=== PATIENT | female | born 1975 | race American Indian/Alaskan Native ===

== ENCOUNTER 2023-12-02 10:38 | Emergency (ER) | payer MEDICAID ==
[~2023-12-02] VITALS: Ht 157.5 cm; Wt 109.1 kg
[~2023-12-02 10:38] MED LIST: AMOX-106 PO; HYDR-4383 PO
[2023-12-02 11:38] LABS: BASOPHILS % (AUTO) 0.7 % (0-1); EOSINOPHILS # (AUTO) 0.4 X10'3 (0-0.9); HEMATOCRIT 41.9 % (35.0-45.0); HEMOGLOBIN 14.1 g/dl (12.0-16.0); LYMPHOCYTES # (AUTO) 1.7 X10'3 (1.1-4.8); LYMPHOCYTES % (AUTO) 27.1 % (21-51); MEAN CORPUSCULAR HEMOGLOBIN 29.8 PG (27.0-31.0); MEAN CORPUSCULAR HGB CONC 33.6 g/dL (33.0-36.5); MEAN CORPUSCULAR VOLUME 88.7 FL (78-98); MONOCYTES # (AUTO) 0.6 X10'3 (0-0.9); MONOCYTES % (AUTO) 9.7 % (2-12); NEUTROPHILS # (AUTO) 3.6 X10'3 (1.8-7.7); NEUTROPHILS % (AUTO) 56.5 % (42-75); PLATELET COUNT 233 X10'3 (140-440); RED BLOOD COUNT 4.73 X10'6 (4.20-5.60); RED CELL DISTRIBUTION WIDTH 14.2 % (11.5-14.5); WHITE BLOOD COUNT 6.4 X10'3 (4.5-11.0)
[2023-12-02] MEDS: morphine 4 MG/ML inj SYRINge IV ONE (11:40)
[2023-12-02 11:54] LABS: ALANINE AMINOTRANSFERASE 327 U/L (12-78); ALBUMIN/GLOBULIN RATIO 0.7 (1.1-1.5); ALKALINE PHOSPHATASE 117 IU/L (46-116); ANION GAP 10 (8-16); ASPARTATE AMINO TRANSFERASE 189 U/L (10-37); BILIRUBIN,TOTAL 0.8 MG/DL (0.1-1.0); BLOOD UREA NITROGEN 14 MG/DL (7-18); BUN/CREATININE RATIO 17.9 (10.0-20.0); CALCIUM 9.2 MG/DL (8.5-10.1); CHLORIDE 108 MMOL/L (99-107); CREATININE 0.78 MG/DL (0.40-0.90); GLUCOSE 168 MG/DL (70-104); POTASSIUM 4.1 MMOL/L (3.5-5.1); SODIUM 140 MMOL/L (135-145); TOTAL CARBON DIOXIDE 22.4 MMOL/L (24-32); TOTAL PROTEIN 7.2 G/DL (6.4-8.2); eCRCL 69 ML/MIN; eGFR 78 ML/MIN
[2023-12-02] MEDS: normal saline 1000ml 1,000 ML IV ONE (12:03)
[2023-12-02] MEDS: ondansetron/PF 4mg/2ml inj IV ONE (12:03)
[2023-12-02 12:05] LABS: PRO BRAIN NATRIURETIC PEPTIDE 72 PG/ML (0-125)
[2023-12-02] MEDS ORDERED: CYCL-145 PO (13:34)
[2023-12-02] MEDS ORDERED: HYDR-3965 PO (13:34)
[2023-12-02 14:19] VITALS: BP 100/56; PULSE 59; RESP 14; TEMP 98.5; O2SAT 100
== END 2023-12-02 14:22 | disposition home or self-care (01) ==
LOC: ER 10:38
DX: S46.812A Strain of other muscles, fascia and tendons at shoulder and upper arm level, left arm, initial encounter (principal); K70.30 Alcoholic cirrhosis of liver without ascites; Z88.0 Allergy status to penicillin; Z88.1 Allergy status to other antibiotic agents; Z88.2 Allergy status to sulfonamides; Z88.5 Allergy status to narcotic agent; Z91.041 Radiographic dye allergy status; W19.XXXA Unspecified fall, initial encounter; Y93.89 Activity, other specified; Y92.89 Other specified places as the place of occurrence of the external cause; Y99.8 Other external cause status
CPT/HCPCS: 36415; 71045; 80053; 83880; 84484; 85025; 93005; 96361; 96374; 96375; 99285; J2270; J2405; J7030

== ENCOUNTER 2024-02-25 14:53 | Emergency (ER) | payer MEDICAID ==
[~2024-02-25] VITALS: Ht 160 cm; Wt 112.0 kg
[~2024-02-25 14:53] MED LIST changes: +CYCL-145 PO
[2024-02-25 14:55] VITALS: BP 100/61; PULSE 85; RESP 16; TEMP 98.5; O2SAT 100
[2024-02-25 15:50] LABS: BILIRUBIN,URINE NEGATIVE (Neg); CLARITY,URINE SLIGHTLY CLOUDY (Clear); COLOR,URINE DARK YELLOW (Yellow); GLUCOSE, URINE >=1000 mg/dl (Neg); KETONES,URINE NEGATIVE (Neg); LEUKOCYTE ESTERASE ,URINE SMALL (Neg); NITRITES, URINE NEGATIVE (Neg); OCCULT BLOOD,URINE NEGATIVE (Neg); PROTEIN,URINE NEGATIVE (Neg); UA COLLECTION TYPE CLN CATCH MIDSTREAM
[2024-02-25 15:51] LABS: URINE HCG NEGATIVE (NEG)
[2024-02-25 16:01] LABS: BACTERIA,URINE 1+ /HPF (Neg); MUCUS STRANDS FEW /LPF (Neg); RBC,URINE 0-2 /HPF (0-2); SQUAMOUS EPITHELIAL CELL,UR FEW /LPF (FEW); WBC CLUMPS,URINE FEW /HPF (NEGATIVE)
[2024-02-25 16:02] LABS: TRICHOMONAS,URINE FEW /HPF (NEGATIVE)
[2024-02-25 16:13] LABS: BASOPHILS % (AUTO) 0.6 % (0-1); EOSINOPHILS # (AUTO) 0.3 X10'3 (0-0.9); EOSINOPHILS % (AUTO) 4.1 % (0-6); HEMATOCRIT 43.6 % (35.0-45.0); HEMOGLOBIN 15.2 g/dl (12.0-16.0); LYMPHOCYTES # (AUTO) 2.5 X10'3 (1.1-4.8); LYMPHOCYTES % (AUTO) 35.6 % (21-51); MEAN CORPUSCULAR HEMOGLOBIN 30.5 PG (27.0-31.0); MEAN CORPUSCULAR HGB CONC 34.9 g/dL (33.0-36.5); MEAN CORPUSCULAR VOLUME 87.2 FL (78-98); MEAN PLATELET VOLUME 9.6 FL (7.4-10.4); MONOCYTES # (AUTO) 0.4 X10'3 (0-0.9); NEUTROPHILS # (AUTO) 3.8 X10'3 (1.8-7.7); NEUTROPHILS % (AUTO) 53.7 % (42-75); PLATELET COUNT 249 X10'3 (140-440); RED CELL DISTRIBUTION WIDTH 13.1 % (11.5-14.5); WHITE BLOOD COUNT 7.1 X10'3 (4.5-11.0)
[2024-02-25 16:37] LABS: ALANINE AMINOTRANSFERASE 507 U/L (12-78); ALBUMIN 3.2 G/DL (3.4-5.0); ALBUMIN/GLOBULIN RATIO 0.7 (1.1-1.5); ALKALINE PHOSPHATASE 156 IU/L (46-116); ANION GAP 7 (8-16); ASPARTATE AMINO TRANSFERASE 309 U/L (10-37); BILIRUBIN,TOTAL 0.9 MG/DL (0.1-1.0); BLOOD UREA NITROGEN 16 MG/DL (7-18); BUN/CREATININE RATIO 19.8 (10.0-20.0); CALCIUM 9.4 MG/DL (8.5-10.1); CHLORIDE 103 MMOL/L (99-107); CREATININE 0.81 MG/DL (0.40-0.90); GLUCOSE 332 MG/DL (70-104); LIPASE 46 U/L (16-77); POTASSIUM 4.2 MMOL/L (3.5-5.1); SODIUM 136 MMOL/L (135-145); TOTAL CARBON DIOXIDE 25.7 MMOL/L (24-32); TOTAL PROTEIN 7.6 G/DL (6.4-8.2); eCRCL 70 ML/MIN; eGFR 75 ML/MIN
[2024-02-25] MEDS: insulin regular, human 10 units/0.1 ml syringe SQ ONE (18:23)
== END 2024-02-25 18:27 | disposition left against medical advice (07) ==
LOC: ER 14:54
DX: E11.65 Type 2 diabetes mellitus with hyperglycemia (principal); F10.90 Alcohol use, unspecified, uncomplicated; Z88.1 Allergy status to other antibiotic agents; Z88.2 Allergy status to sulfonamides; Z91.041 Radiographic dye allergy status
CPT/HCPCS: 36415; 80053; 81001; 81025; 82948; 83690; 85025; 87088; 99283

== ENCOUNTER 2024-09-06 14:53 | Emergency (ER) | payer MEDICAID ==
[~2024-09-06] VITALS: Ht 157.5 cm; Wt 114.4 kg
[2024-09-06 14:56] VITALS: TEMP 97.5
--- NOTE | 2024-09-06 15:10 | ELECTROCARDIOGRAPH REPORT ---
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 Freedom Anna Measurements Intervals [place] Rate: 96 P: 39 [place]: 135 QRS: 59 QRSD: 92 T: 40 QT: 347 QTc: 439 Interpretive Statements Sinus rhythm Low voltage, precordial leads Electronically Signed On 09-13-2024 20:06:[address] Freedom Anna Please click the below link to view image of tracing.
[2024-09-06 15:17] LABS: MEAN PLATELET VOLUME 9.3 FL (7.4-10.4); RED CELL DISTRIBUTION WIDTH 13.1 % (11.5-14.5)
--- NOTE | 2024-09-06 15:33 | RADIOLOGY REPORT ---
EXAM: DI CHEST,SINGLE VIEW Indication: CP Technique: Single frontal view of the chest was obtained Comparison: DI CHEST,SINGLE VIEW on DOS: 12/02/23 FINDINGS: Lines and Tubes: None Lungs: No focal consolidation. Pleura: No effusion. No pneumothorax. Cardiomediastinal contours: Unremarkable Bones: No acute osseous abnormality. IMPRESSION: No acute cardiopulmonary disease.
[2024-09-06 15:38] LABS: CREATININE 0.73 MG/DL (0.40-0.90); PRO BRAIN NATRIURETIC PEPTIDE 53 PG/ML (0-125); TOTAL CARBON DIOXIDE 23.8 MMOL/L (24-32); eCRCL 73 ML/MIN; eGFR 84 ML/MIN
[2024-09-06] MEDS: normal saline 1000ml 1,000 ML IV ONE (16:51)
--- NOTE | 2024-09-06 17:21 | Physician Documentation ---
History of Present Illness ~ Chief Complaint: Chest Pain Stated Complaint: CHEST TIGHTNESS/SOB Time Seen by MD: 15:39 Primary Medical Doctor: CATALINA WEST HPI 49 year old female reports that she was moving a heavy ice chest today and began experiencing a variety of symptoms including shortness of breath, weakness, and dizziness. She believes the smoky environment outside is to blame for her symptoms. She denies fevers, N/V/D. Medication Reconciliation Allergies: Coded Allergies: Sulfa (Sulfonamide Antibiotics) (Verified Allergy, Intermediate, 09/06/24) levofloxacin (Verified Allergy, Intermediate, 09/06/24) Iodinated Contrast Media (Verified Allergy, Unknown, 09/06/24) Scheduled Amoxicillin Trihydrate (Amoxicillin), 1 CAP PO TID Cyclobenzaprine HCl (Cyclobenzaprine HCl), 1 TAB PO Q8H Hydrocodone/Acetaminophen ([place] 5-325 Tablet), 1 TABLET PO TID Past Medical History Past Medical History: Renal Disease Past Surgical History: noncontributory Smoking Status: Never smoker Alcohol Use: Heavy Drug Use: none Lives In: Home Review of Systems All Other Systems at this time: Reviewed and Negative Physical Exam Vital Signs: RN Vital Signs have been reviewed: Yes, Temperature: 97.5, Source: Temporal, Heart Rate: 98, Respiratory Rate: 20, BP: 107/65, Pulse Oximetry: 96, Weight: 114.400 Oxygen Flow Rate: 0 Physical Exam HEENT: PERRL, moist oral mucosa, EOMI Pulmonary: No respiratory distress Cardiac: RRR, no murmur, rub or gallop GI: nondistended, soft, nontender, no guarding, no rebound MSK: no deformity Skin: w/d/i, no rash Neuro: alert, nonfocal Psych: normal affect Progress Results/Orders Results/Orders Orders - RENEE HOWELL MD Chest,Single View (09/06/24 15:04) Monitor (09/06/24 15:04) Saline Lock (09/06/24 15:04) Oxygen (09/06/24 15:04) Hs Troponin I W Calculations (09/06/24 17:04) Hs Troponin I W Calculations (09/06/24 18:04) Normal Saline 1000ml (0.9% Sodium Chlori (09/06/24 16:20) Urinalysis, Cult If Indicated (09/06/24 16:43) Completed Orders - RENEE HOWELL MD Chest,Single View (09/06/24 15:04) Cbc/Diff (09/06/24 15:04) BMP (09/06/24 15:04) PBNP (09/06/24 15:04) Electrocardiogram (09/06/24 15:04) Hs Troponin I W Calculations (09/06/24 15:04) Medications Received in ER Medications (Trade) Dose Ordered Sig/Hazel Route PRN Reason Start Time Stop Time Status Last Admin Dose Admin Sodium Chloride 1,000 ml @ 1,000 mls/hr ONCE ONCE IV 09/06/24 16:20 09/06/24 17:19 09/06/24 16:51 1,000 MLS/HR Vital Signs 09/06/24 09/06/24 14:56 15:57 Temp 97.5 Pulse 98 Resp 20 B/P (MAP) 107/65 Pulse Ox 96 O2 Flow Rate 0 Laboratory Tests Test 09/06/24 15:08 White Blood Count 8.1 Red Blood Count 5.00 Hemoglobin 14.9 Hematocrit 43.5 Mean Corpuscular Volume 87.0 Mean Corpuscular Hemoglobin 29.8 Mean Corpuscular Hemoglobin Concent 34.2 Red Cell Distribution Width 13.1 Platelet Count 256 Mean Platelet Volume 9.3 Neutrophils (%) (Auto) 56.7 Lymphocytes (%) (Auto) 34.1 Monocytes (%) (Auto) 4.8 Eosinophils (%) (Auto) 3.4 Basophils (%) (Auto) 1.0 Neutrophils # (Auto) 4.6 Lymphocytes # (Auto) 2.7 Monocytes # (Auto) 0.4 Eosinophils # (Auto) 0.3 Basophils # (Auto) 0.1 CBC Comment Sodium Level 138 Potassium Level 3.6 Chloride Level 105 Carbon Dioxide Level 23.8 L Anion Gap 9 Blood Urea Nitrogen 18 Creatinine 0.73 Estimated GFR/1.73 m2 84 BUN/Creatinine Ratio 24.7 H Glucose Level 203 H Calcium Level 9.1 Troponin I High Sensitivity 14 Pro-B-Type Natriuretic Peptide 53 Albumin 3.4 Chemistry Comments EKG/XRAY/CT/US/VASC/MRI Chest X-Ray : Interpreted By: self Views: 1 VIEW Indication: pain Lungs: normal Mediastinum: normal Ribs/Bones: normal Abdomen: normal Impression: no acute disease Medical Decision Making Findings 49 year old female as above. Exam, vitals, and workup were nonspecific and demonstrated only some dehydration. IVF bolus, improved on reevaluation, discharged with return precautions. Differential Dx:Considerations: Include: angina, chest wall pain, gastritis, herpes zoster, myocardial infarction, pericarditis, pancreatitis, pneumonia, pneumothorax, pulmonary embolus Departure Disposition: 01 HOME / SELF CARE / HOMELESS Impression: Primary Impression: Dehydration Condition: Stable Discharge Instructions: Nonspecific Chest Pain, Adult Referrals: NO PRIMARY CARE PROVIDER (PCP) Education Educated: Patient Educated regarding: diagnosis, treatment, prognosis, need for follow up Signature Scribe Signature: . Attestation: . RENEE HOWELL MD Sep 06, 2024 17:21
[2024-09-06 17:35] VITALS: BP 116/75; PULSE 97; RESP 9; O2SAT 97
== END 2024-09-06 17:38 | disposition home or self-care (01) ==
LOC: ER 14:53
DX: R07.89 Other chest pain (principal); E86.0 Dehydration; Z88.2 Allergy status to sulfonamides; Z88.1 Allergy status to other antibiotic agents; Z91.041 Radiographic dye allergy status
CPT/HCPCS: 36415; 71045; 80048; 83880; 84484; 85025; 93005; 96360; 99285; J7030

== ENCOUNTER 2025-01-06 11:50 | Emergency (ER) | payer MEDICAID, OTHER ==
[~2025-01-06] VITALS: Ht 160 cm; Wt 113.2 kg
[2025-01-06 11:52] VITALS: TEMP 97.5
--- NOTE | 2025-01-06 12:06 | ELECTROCARDIOGRAPH REPORT ---
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 PAUL Justice Measurements Intervals [place] Rate: 79 P: 40 OR: 131 QRS: 63 QRSD: 84 T: 41 QT: 376 QTc: 432 Interpretive Statements Sinus rhythm Low voltage, precordial leads Electronically Signed On 01-07-2025 15:17:[address] PAUL Justice Please click the below link to view image of tracing.
--- NOTE | 2025-01-06 12:27 | RADIOLOGY REPORT ---
CLINICAL HISTORY: CP TECHNIQUE: Single view of the chest was obtained. COMPARISON: DI CHEST,SINGLE VIEW on DOS: 09/06/24, DI CHEST,SINGLE VIEW on DOS: 12/02/23 FINDINGS: The heart size and pulmonary vasculature are normal. The lungs are clear. IMPRESSION: NO ACUTE CARDIOPULMONARY PROCESS.
[2025-01-06 12:33] LABS: MEAN PLATELET VOLUME 10.1 FL (7.4-10.4); RED CELL DISTRIBUTION WIDTH 13.9 % (11.5-14.5)
[2025-01-06 12:53] LABS: CREATININE 0.78 MG/DL (0.40-0.90); PRO BRAIN NATRIURETIC PEPTIDE 136 PG/ML (0-125); TOTAL CARBON DIOXIDE 30.5 MMOL/L (24-32); eCRCL 71 ML/MIN; eGFR 78 ML/MIN
[2025-01-06] MEDS: ondansetron/PF 4mg/2ml inj IV ONE (15:40)
[2025-01-06] MEDS: normal saline 1000ml 1,000 ML IV ONE (15:40)
--- NOTE | 2025-01-06 16:20 | Physician Documentation ---
History of Present Illness ~ Chief Complaint: Dizziness Stated Complaint: SOB Time Seen by MD: 14:36 Primary Medical Doctor: YAQUELIN BORRERO Source: patient Mode of Arrival: POV Exam Limitations: no limitations HPI Patient presents with multiple medical complaints. She has had nausea and vomiting since 10:00 a.m. this morning. Chest pain on and off for the past two weeks located in the left chest radiating to the shoulder. Pain radiates down her left arm. She has a associated shortness for breath and weakness. She is vomiting. States now vomiting bile. She has pain in her right upper quadrant that is worse with palpation. Complains of dizziness with standing. Denies associated diaphoresis. Newly diagnosed diabetes mellitus. Does not know her hemoglobin A1c. Does not drink alcohol. Reports history of cirrhosis secondary to alcohol with last drink two years ago. Medication Reconciliation Allergies: Coded Allergies: Sulfa (Sulfonamide Antibiotics) (Verified Allergy, Intermediate, 01/06/25) levofloxacin (Verified Allergy, Intermediate, 01/06/25) morphine (Verified Allergy, Intermediate, panic attack, 01/06/25) Iodinated Contrast Media (Verified Allergy, Unknown, 01/06/25) Scheduled Amoxicillin Trihydrate (Amoxicillin), 1 CAP PO TID Cyclobenzaprine HCl (Cyclobenzaprine HCl), 1 TAB PO Q8H Hydrocodone/Acetaminophen ([place] 5-325 Tablet), 1 TABLET PO TID Scheduled PRN ONDANSETRON ODT 4mg tablet (Ondansetron Odt), 1 TAB PO Q6H PRN PRN for nausea/vomiting Past Medical History Past Medical History: Cirrohsis, Renal Disease Past Surgical History: cholecystectomy Alcohol Use: Heavy Drug Use: none Lives In: Home Physical Exam Vital Signs: RN Vital Signs have been reviewed: Yes, Temperature: 97.5, Source: Temporal, Heart Rate: 77, Respiratory Rate: 15, BP: 100/57, Pulse Oximetry: 97, Weight: 113.200 Oxygen Flow Rate: 0 Pulse Oximetry Reflects: adequate oxygenation Physical Exam General: Awake, alert, oriented. No apparent distress Neck: Supple. Normal range of motion. No JVD Respiratory: Lungs are clear to auscultation bilaterally. No respiratory distress. Chest: Normal shape and size. No accessory muscle use. Cardiovascular: Regular rate and rhythm. S1-S2. No murmur, gallop, rub. Gastrointestinal: Abdomen is soft, large. Pain to the bilateral upper quadrants but especially in the right upper quadrant with grimacing on palpation. Bowel sounds present. Extremities: No lower extremity edema, cyanosis or clubbing. Neurologic: Alert and oriented x4. Nonfocal Psychiatric: Normal mood and affect. Skin: Normal color. Warm and dry. Progress Progress Note Patient was re-evaluated on multiple occasions. I reviewed all of her testing results with her. She reports feeling better. Reports readiness to discharge home. Results/Orders Results/Orders Orders - KARIME SCHULTZ NP Ultrasound Of Abdomen (01/06/25 16:18) Completed Orders - KARIME SCHULTZ GRIDCAP MACHINE OPERATOR Normal Saline 1000ml (0.9% Sodium Chlori (01/06/25 14:55) Ondansetron Inj. (Zofran 4mg/2ml Vial) (01/06/25 14:55) Ultrasound Of Abdomen (01/06/25 16:18) Morphine 4mg/Ml Inj. (Morphine Inj.) (01/06/25 16:55) Prochlorperazine Inj (Compazine Inj) (01/06/25 17:10) Diphenhydramine Inj (Benadryl Inj.) (01/06/25 17:45) Medications Received in ER Medications (Trade) Dose Ordered Sig/Hazel Route PRN Reason Start Time Stop Time Status Last Admin Dose Admin Sodium Chloride 1,000 ml @ 1,000 mls/hr ONCE ONCE IV 01/06/25 14:55 01/06/25 15:54 DC 01/06/25 15:40 1,000 MLS/HR (Zofran 4mg/2ml vial) 4 mg ONCE ONCE IV 01/06/25 14:55 01/06/25 14:56 DC 01/06/25 15:40 4 MG (morphine inj.) 4 mg ONCE ONCE IV 01/06/25 16:55 01/06/25 16:59 DC 01/06/25 17:12 4 MG (Compazine inj) 10 mg ONCE ONCE IV 01/06/25 17:10 01/06/25 17:11 DC 01/06/25 17:11 10 MG (Benadryl inj.) 25 mg ONCE ONCE IV 01/06/25 17:45 01/06/25 17:46 DC 01/06/25 18:12 25 MG Vital Signs 01/06/25 01/06/25 01/06/25 01/06/25 11:52 14:05 14:46 15:00 Temp 97.5 Pulse 66 77 77 Resp 24 15 18 B/P (MAP) 121/63 100/57 (71) 112/63 (79) Pulse Ox 96 97 96 O2 Flow Rate 0 0 0 01/06/25 01/06/25 01/06/25 17:00 17:12 18:48 Pulse 69 65 Resp 16 18 14 B/P (MAP) 126/70 (88) 106/63 (77) Pulse Ox 98 97 O2 Flow Rate 0 0 Laboratory Tests Test 01/06/25 11:55 01/06/25 12:14 01/06/25 14:28 01/06/25 15:17 Glucometer 169 H White Blood Count 6.8 Red Blood Count 5.07 Hemoglobin 15.4 Hematocrit 44.7 Mean Corpuscular Volume 88.3 Mean Corpuscular Hemoglobin 30.4 Mean Corpuscular Hemoglobin Concent 34.5 Red Cell Distribution Width 13.9 Platelet Count 239 Mean Platelet Volume 10.1 Neutrophils (%) (Auto) 57.2 Lymphocytes (%) (Auto) 31.6 Monocytes (%) (Auto) 6.9 Eosinophils (%) (Auto) 3.7 Basophils (%) (Auto) 0.6 Neutrophils # (Auto) 3.9 Lymphocytes # (Auto) 2.2 Monocytes # (Auto) 0.5 Eosinophils # (Auto) 0.3 Basophils # (Auto) 0.0 CBC Comment Sodium Level 141 Potassium Level 4.0 Chloride Level 106 Carbon Dioxide Level 30.5 Anion Gap 5 L Blood Urea Nitrogen 13 Creatinine 0.78 Estimated GFR/1.73 m2 78 BUN/Creatinine Ratio 16.7 Glucose Level 153 H Calcium Level 9.5 Total Bilirubin 1.1 H Direct Bilirubin 0.4 H Aspartate Amino Transf (AST/SGOT) 239 H Alanine Aminotransferase (ALT/SGPT) 494 H Alkaline Phosphatase 152 H Troponin I High Sensitivity 17 17 17 Pro-B-Type Natriuretic Peptide 136 H Total Protein 8.1 Albumin 3.7 Globulin 4.4 H Albumin/Globulin Ratio 0.8 L Lipase 38 Chemistry Comments Troponin I High Sens Percent Delta 0 0 Troponin I Hi Sens Absolute Change 0 0 EKG/XRAY/CT/US/VASC/MRI EKG : Intepreting Monitor?: Yes Indication: chest pain EKG: NSR EKG Blocks: none [place]: normal Hypertrophy: none Additional Comment EKG interpreted by me: Normal sinus rhythm rate of 79. Normal axis. No acute ST changes. Ultrasound : Interpreted By: radiologist Ultrasound of: abdomen Impression [facility] [address] , [place], [facility] [id number] ULTRASOUND Patient: GERMAIN VENTURA Medical Record: [id number] [facility] : 1975, Age: 49 Sex: Female Location: ER Patient Status: [facility] ER Service Date/Time: 01/06/251617 Ordering Physician: KARIME SCHULTZ NP Exam: ULTRASOUND OF ABDOMEN ULTRASOUND ABDOMEN, LIMITED RIGHT UPPER QUADRANT: REASON FOR EXAM: RUQ pain TECHNIQUE: Real-time sector scans in the transverse and longitudinal planes were obtained through the right upper quadrant of the abdomen. FINDINGS: The liver is borderline enlarged at 17.2 cm in length. There is hepatopetal flow in the portal vein. There is no intrahepatic biliary ductal dilatation. The common bile duct measures 5 mm. The gallbladder is surgically absent The visualized portion of the pancreas is unremarkable. The pancreas is largely obscured by bowel gas. The right kidney measures 9.9 cm. No hydronephrosis or nephrolithiasis is identified. There is no evidence of right renal mass or cyst. The visualized portions of the abdominal aorta demonstrate no evidence of aneurysmal dilatation. The visualized inferior vena cava is unremarkable. There is no free fluid identified in the right upper quadrant. IMPRESSION: Borderline hepatomegaly at 17.2 cm in length. Gallbladder surgically absent. Electronically Signed by:RODGER MUÑOZ MD Date & Time: 01/06/251715 Dictated by: RODGER MUÑOZ MD Dictation date and time: 01/06/25 7615 Primary Care Provider: NO PRIMARY CARE PROVIDER cc: KARIME SCHULTZ GRIDCAP MACHINE OPERATOR ~ Medical Decision Making Additional information obtaine: family Findings Previous ER visit was reviewed from August 2024 where she presented with dehydration improving with IV fluids. Patient with history of alcoholic cirrhosis and diabetes presents with multiple medical complaints. These included dizziness when she stands, nausea and vomiting onset this morning, that chest pain that has been ongoing for the past two weeks. She states she is vomiting bile. Complained of significant right upper quadrant pain on palpation. Given her pain with palpation considered cholecystitis. She is status post cholecystectomy. Concern for choledocholithiasis. Ultrasound was performed that was negative. She did have borderline hepatomegaly which is consistent with her previous diagnosis of cirrhosis. Her liver enzymes were elevated. I had the opportunity to review her previous laboratory evaluation and her liver enzymes were also significantly elevated at that time. This appears to be her baseline. Her nausea improved throughout her emergency department stay with Zofran and then Compazine. She did get she is after receiving Compazine which was treated with Benadryl. This improved her symptoms. For her chest pain her EKG revealed sinus rhythm. There is no ST changes. Pain has been ongoing for weeks. Her high sensitivity troponins were negative. She has no rales on exam. Her proBNP is not significantly elevated and I do not suspect acute heart failure. She has no lower extremity edema. Her heart score is two. I recommend that she follow up with her primary care provider. Vital signs were stable. She denied dizziness on discharge. She was ambulatory with steady gait on discharge. Warning signs and symptoms were reviewed. Highly encouraged to follow up with primary care provider. They will return for new or worsening symptoms. Reviewed with patient as well as her Differential Dx:Considerations: Include: dehydration, electrolyte imbalance, hypoglycemia, hypotension, renal failure, respiratory failure Departure Time of Disposition: 18:28 Disposition: 01 HOME / SELF CARE / HOMELESS Impression: Primary Impression: Abdominal pain Qualified Codes: R10.11 - Right upper quadrant pain Additional Impressions: Chest pain Qualified Codes: R07.9 - Chest pain, unspecified Liver cirrhosis Qualified Codes: K70.30 - Alcoholic cirrhosis of liver without ascites Discharge Instructions: Dizziness, Nonspecific Chest Pain, Adult Additional Instructions: Your liver ultrasound showed cirrhosis. Your liver enzymes were elevated but about at baseline from previous labs back in February of this year. I do not suspect an acute intra-abdominal emergency about this time. Your symptoms have improved which is reassuring. I will give you a prescription for Zofran that you can take as needed for nausea. Recommend that you drink plenty of water. Rest. If you have increased abdominal pain, are unable to keep food and water down. Or if you have any other concerns. Your chest pain was nonspecific. Your EKGs reassuring. Your troponins (cardiac labs) were negative. I recommend that you follow up with your primary care provider with regards to this. Referrals: NO PRIMARY CARE PROVIDER (PCP) Prescriptions ONDANSETRON ODT 4mg tablet (ONDANSETRON ODT) 4 Mg Tab.rapdis 1 TAB PO Q6H PRN PRN for nausea/vomiting for 4 Days, #16 TAB 0 Refills Prov: KARIME SCHULTZ NP 01/06/25 Education Educated: Patient Educated regarding: diagnosis, treatment, need for follow up Signature Scribe Signature: No scribe Attestation: The note accurately reflects work and decisions made by me.Karime Schultz - TOAN 01/06/25 20:26 This note was created with the assistance of voice recognition software whereby errors in grammar, syntax, and/or spelling may have occurred despite active proofreading efforts by the author. Please do not hesitate to contact the provider for clarification or for questions regarding the content of this document. KARIME SCHULTZ NP Jan 06, 2025 16:20
[2025-01-06] MEDS: morphine 4 MG/ML inj SYRINge IV ONE (17:12)
--- NOTE | 2025-01-06 17:18 | RADIOLOGY REPORT ---
ULTRASOUND ABDOMEN, LIMITED RIGHT UPPER QUADRANT: REASON FOR EXAM: RUQ pain TECHNIQUE: Real-time sector scans in the transverse and longitudinal planes were obtained through the right upper quadrant of the abdomen. FINDINGS: The liver is borderline enlarged at 17.2 cm in length. There is hepatopetal flow in the portal vein. There is no intrahepatic biliary ductal dilatation. The common bile duct measures 5 mm. The gallbladder is surgically absent The visualized portion of the pancreas is unremarkable. The pancreas is largely obscured by bowel gas. The right kidney measures 9.9 cm. No hydronephrosis or nephrolithiasis is identified. There is no evidence of right renal mass or cyst. The visualized portions of the abdominal aorta demonstrate no evidence of aneurysmal dilatation. The visualized inferior vena cava is unremarkable. There is no free fluid identified in the right upper quadrant. IMPRESSION: Borderline hepatomegaly at 17.2 cm in length. Gallbladder surgically absent.
[2025-01-06] MEDS ORDERED: ONDA-243 PO (18:37)
[2025-01-06 18:48] VITALS: BP 106/63; PULSE 65; RESP 14; O2SAT 97
== END 2025-01-06 18:56 | disposition home or self-care (01) ==
LOC: ER 11:51
DX: R10.11 Right upper quadrant pain (principal); R07.9 Chest pain, unspecified; K74.60 Unspecified cirrhosis of liver; R06.02 Shortness of breath; R42 Dizziness and giddiness; E11.9 Type 2 diabetes mellitus without complications; Z88.1 Allergy status to other antibiotic agents; Z88.2 Allergy status to sulfonamides; Z88.5 Allergy status to narcotic agent; Z90.49 Acquired absence of other specified parts of digestive tract; Z91.041 Radiographic dye allergy status
CPT/HCPCS: 36415; 71045; 76700; 80048; 80076; 82948; 83690; 83880; 84484; 85025; 93005; 96361; 96374; 96375; 99285; J0780; J1200; J2270; J2405; J7030